=== PATIENT | male | born 2000 | race Caucasian/White ===

== ENCOUNTER 2018-08-13 12:30 | Outpatient (RCR) | payer OTHER, SELFPAY ==
--- NOTE | 2018-06-17 18:11 | HP.PTEVAL ---
Patient's Visit Information MADHAVI ECHAVARRIA is a 17 year old M referred to Physical Therapy by Roel Hernandez with a diagnosis of Back Pain.. Date of Evaluation: 06/17/18 Physical Therapist: Dom Patel, MEEKT, OC - Visit Plan Frequency: 2x /Week Duration: 4-6 Weeks Plan: 2x/week for 3-6 weeks. 1. [place] based ext adn L/S mobs. 2. Needs aggressive ROM to LB in rotations and flexion as well as aggressive HS, hip flexor and quad stretches progressing all to HEP. 3. core strength and progression of activity/piosture adn body mechanics. 4. ES and ice if needed. - Subjective Subjective: LBP brings him here. Had it since March 12 started on the toilet sitting in the morning with pushing. Been fairly constant since then. Had another spasm on Saturday sitting and reaching R. Always some feeling there. Worse with bending. Sitting too long makes it hurt worse. carrying backpack hurts. Worse in the evening. Student at [employer] sitting alot of day. Not employed. Able to do Basic ADLs but anything bending takes thought and not easy. Hobbies include golf but has not polayed since this started. No leg symptoms or numbness or tingling, confined to back. - Pain LBP Pain Intensity (Out of 10): 2 Pain Intensity Range: 1, 8 Comment: R side> L - Objective Walks tall and I. trasnfers slow and hesitant but I. Flat lordosis in L/S, very stiff LB and HS max tight at -45 90/90, hip flexors tight with + earle test. Quads mod tight. L/S ext max limited, flexion slow and mod limited, SB mod limited B. No excessive pain just slightly centrally at end of extension. Pulling felt with flexion. reflexes 2/3 patella adn achilles. Sensation LE WNl tto gross light touch. Strength LE 4/5 without pain. - slump and - SLR tests. [place] + R compression. Repeated PPU seems to increase ROM and no change to pain. - Goals Goal 1:: Full L/S AROM without increased pain or hesitancy Goal Time Frame: 4-6 Weeks Goal 2:: Patient feel 90% back to normal with 1/10 at worst pain in LB Goal Time Frame: 4-6 Weeks Goal 3:: Patient back to running and feels like he could golf. Goal Time Frame: 4-6 Weeks Goal 4:: I apporp HEP for minimize future problems. Goal Time Frame: 4-6 Weeks - Rehabilitation Potential Physical Therapy Diagnosis: LBP likely discal in nature. Rehabilitation Potential: Good - Anticipated Interventions Patient/Client Instruction: Educate patient on: Condition, Plan of Care For the Purpose of:: To decrease pain, To increase ROM, To increase tolerance to activity/condition/position Therapeutic Exercise to Include: Strength training, Flexibilty training, Passive ROM, Active ROM, Dynamic Lumbar Stabilization, Shel[place] Exercises For the Purpose of:: To decrease pain, To increase ROM, To increase tolerance to activity/condition/position, To improve ability of physical actions for home/community/work/leisure Manual Therapy Techniques to Include: Mobilization, Passive ROM For the Purpose of:: To decrease pain, To increase ROM TENS: Yes Cryotherapy (ice pack, ice massage): Yes Thermo therapy (hot pack): Yes For the Purpose of:: To decrease pain Thank you for the opportunity to evaluate your patient. For Medicare and Medicare HMO plans, please review the plan of care and approve it. It will need to be FAXED BACK to us at [phone] for Medicare purposes. Please let me know if there are questions or concerns regarding this plan of care. Physician Signature: Date:
--- NOTE | 2018-08-13 12:59 | HP.PTDCSUM ---
HP - PT D/C Summary It has been my pleasure to treat MADHAVI ECHAVARRIA under orders from Roel Hernandez MD, for the diagnosis of Back Pain. for a total of 8 visit(s). Discharge Date: 08/13/18 Please see the following information for a summary of their discharge status. - Subjective Subjective: Did OK. Hard to get ex in over the holidays. [place] worse over the holidays. Has some improvements sitting. Pain daily to 1/10, bad days 3/10.Hard to find a pattern but ex days are better. Can sit longer now. After an hour he is not as painful as a month ago. - Pain LBP Pain Intensity (Out of 10): 0 - Overall Improvement % Improvement: 60 - Objective Objective/Function: ROM L/S still stiff in lower two segments of flexiona dn extension. HS still very tight but he is working on these at home. Has not been strengthening in the gym due to being off of school. OVERALL PROGRESS IS SLOWER THAN I WOULD LIKE. Recommend return to doctor to see if there is other steps appropriate at this point. Could still see patient if found appropriate by physician for lower lumbar ROM and mobs - Goals Goal 1:: Full L/S AROM without increased pain or hesitancy Goal Progress: Progressing Goal 2:: Patient feel 90% back to normal with 1/10 at worst pain in LB Goal Progress: Progressing Goal 3:: Patient back to running and feels like he could golf. Goal Progress: Progressing Goal 4:: I apporp HEP for minimize future problems. Goal Progress: Goal Met - Plan Plan: Pt to contact doctor regarding next medical step(MRI, ortho, etc) then will call after doctor visit. - D/C Information Discharge Comments: Progress is slower than expected for 17 year old. Recommend to doctor for next medical step but referral back is appropriate if other options are exhausted. If there are questions or concerns regarding this patient's physical therapy, please feel free to call me at [phone]. Thank you for the referral of this patient. Sincerely, Dom Patel, DPT, OCS, CSCS
== END 2018-08-13 19:00 | disposition home or self-care (01) ==
LOC: PT 12:30
PROVIDERS: Family Provider Family Medicine; PCP Family Medicine; Referring Provider Family Medicine; Visit Provider Family Medicine
DX: M54.5 Low back pain (principal)
CPT/HCPCS: 97110; 97140; 97162; 97530

== ENCOUNTER 2019-11-09 00:17 | Observation (INO) | payer OTHER, SELFPAY ==
[2019-11-09 00:18] VITALS: BP 133/80; PULSE 69; RESP 18; TEMP 36.2; O2SAT 100; BMI 17.5
--- NOTE | 2019-11-09 01:57 | ED.DCSUM_ITS ---
- ER Visit Summary Date of Service: 11/09/19 Chief Complaint: Right arm swelling History of Present Illness: The patient is a [address] Hernandez. He reports that 1 week ago he was tearing down a barn with a sledgehammer. This took approximately 1 hour. He reports that he was sore after. He states that he has swelling of his right arm and forearm that began 4 days ago. He states that his pain is much improved. Is an aching pain is 2 out of 10 severity currently and at worst. Is worsened by movement relieved by rest. He denies any numbness or weakness. He is left-hand dominant. Physical Examination: Vitals: Stable. Afebrile. General: Well-nourished and well-developed. Head: Normocephalic atraumatic. Neck: Supple, no lymphadenopathy. No JVD. Nontender. Cardiovascular: Regular rate and rhythm. No murmurs. Respiratory: No respiratory distress. Clear to auscultation bilaterally. Abdominal: Soft, nontender, nondistended, normal bowel sounds. No guarding, rebound, or peritoneal signs. Back: Nontender. Extremities: Mild diffuse tenderness outpatient over his left forearm both anteriorly and posteriorly. He has 2+ edema. He has full range of motion of his shoulder, elbow, and wrist without difficulty. He has no pain with passive range of motion of his elbow or wrist. He has 2+ radial pulse bilaterally. Skin: Normal color, no rash. Neurologic: Alert and oriented ?3. Cranial nerves II through XII are intact. Normal strength and sensation. Psych: Normal affect. Test Results: Patient refused x-rays. CPK is 50,185. CBC shows segmented neutrophils of 71. Chem-7 shows a BUN of 19. Emergency Department Course and Treatment: Patient refused pain medications. He is resting comfortably. Patient has no signs of compartment syndrome. He was given a liter of normal saline IV. Treatment Plan: Patient CPK is very elevated. His swelling began just tonight. I do not think he has compartment syndrome. However I do think he would benefit from admission to trend his CPK to make sure that this is improving rather worsening. He was discussed with Dr. Olivera. Disposition: Admitted in stable condition. Impression: 1. Right arm swelling. 2. Rhabdomyolysis. This note was generated with [employer] software. It may contain incorrect words, spelling, and punctuation that were not noted in review of the chart prior to signing ED Disposition - Plan for ED Patient: Referrals: Roel Hernandez MD [Primary Care Provider] -
[2019-11-09] MEDS: 0.9% Normal Saline 1,000 ML 1000 ML IV (02:39)
[2019-11-09 02:51] LABS: Anion Gap 8 (5-15); BUN 19 mg/dL (7-18); BUN/Creat Ratio 17.9 RATIO (10-20); Chloride 105 mmol/L (98-107); Creatinine, Serum 1.06 mg/dL (0.70-1.30); EST Glomerular Filtration Rate 94 mL/min (>60); Est Glom Filt Rate - Afr Amer 113 mL/min (>60); Estimated Creatinine Clearance 96.67 ml/min; Glucose 95 mg/dL (74-106); Potassium 3.8 mmol/L (3.5-5.1); Sodium Level 140 mmol/L (136-145)
[2019-11-09 02:52] LABS: Absolute Lymphocyte Count 1.22 X10^3/uL (0.83-4.51); Absolute Neutrophil Count 4.2 X10^3/uL (2.0-7.7); Basophil# 0.01 X10^3/uL; Basophil% 0.2 % (0-1); Eosinophil# 0.08 X10^3/uL; Eosinophils% 1.4 % (0-5); Hematocrit 45.4 % (40-54); Hemoglobin 15.7 g/dL (13.0-16.5); Lymphocyte # 1.22 X10^3/ul (4.0); Lymphocyte % 20.9 % (19-41); Mean Corp Hgb Conc 34.6 g/dL (32-36); Mean Corpuscular Hgb 30.8 pg (27.0-32.0); Mean Platelet Vol. 10.3 fl (6.2-12.0); Monocyte# 0.34 X10^3/uL; Monocyte% 5.8 % (0-10); NRBC Flagged by Analyzer 0 % (0-5); Neutrophil # 4.16 X10^3/uL (2.7-7.7); Neutrophil % 71.4 % (47-70); Platelet Count 157 K/mm3 (150-450); RBC Distribution Width SD 39.3 fl (35.1-43.9); White Blood Count 5.8 K/mm3 (4.4-11.0)
[2019-11-09 03:40] VITALS: BP 118/70; PULSE 70; RESP 18; TEMP 36.5; O2SAT 98
[2019-11-09 03:40] LABS: Bacteria 0 SEEN /hpf (None Seen); Mucous, Urine 0 SEEN /hpf (<or=2+); Red Blood Cells-Urine 0 SEEN /hpf (0-5); Squamous Epithelial Cells - UA 0 SEEN /hpf (0-5); White Blood Cells 0 SEEN /hpf (0-5)
[2019-11-09 03:41] LABS: Glucose, Dipstick Normal (Normal); Ketone-Dipstick Negative (Negative); Leukocyte Esterase-Dipstick Negative /ul (Negative); Nitrite-Dipstick Negative (Negative); Occult Blood-Urine Negative /ul (Negative); Protein-Dipstick Negative (Negative); Specific Gravity, Urine 1.005 (1.002-1.030); Urine Bilirubin Dipstick Negative (Negative); Urine Urobilinogen Normal (Normal)
[2019-11-09 03:42] LABS: Color, Urine Yellow (Yellow); Urine Clarity Clear (Clear)
[2019-11-09 04:05] VITALS: BP 119/86; PULSE 64; RESP 16; TEMP 36.7; O2SAT 99
[2019-11-09 04:08] VITALS: BMI 17.4; BMI 17.5
--- NOTE | 2019-11-09 04:39 | HP.PCM_ITS ---
Problem List (1) Exertional rhabdomyolysis Status: Acute History of Present Illness Date of Admission: 11/09/19 Chief Complaint: Right arm swelling for 4 days The patient is a 19 year old M with no past medical history came to ER with progressive worsening of right upper extremity swelling started about 4 days ago prior to admission. Patient used a sledgehammer for tearing down a barn about a week ago. Is right arm was sore and painful but has improved, complaining of 2 out of 10 severity, aching type pain. Patient denies numbness, tingling, paresthesia, weakness or loss of movement but right arm and shoulder movement is painful. Patient is left-hand dominant. In ED, labs were done which shows CK 50,285. BUN 19, creatinine 1.06. Bicarb 27, anion gap 8. Rest of the labs normal. UA is negative with no proteinuria, 0 RBC and WBC and occult blood. [] Patient does not want x-ray of right upper extremity but wants to defer if upper extremity swelling gets worse Past Medical History Allergies No Known Allergies Allergy (Verified 11/09/19 00:20) Home Medications: Ambulatory Orders Medication Instructions Recorded NK 11/09/19 Surgical History: no surgical history Psychiatric History: No pertinent psych hx Smoking Status: Never smoker - *Family History Maternal History Items: No pertinent history Paternal History Items: Heart Disease Review of Systems Constitutional: Denies: Chills, Fever, Weight Change HEENT: Denies: Head Aches, Sinus Congestion, Sinus Drainage Cardiovascular: Denies: Chest Pain, Palpitations Respiratory: Denies: Cough, Shortness of breath at rest, Sputum production Gastrointestinal: Denies: Abdominal Pain, Nausea, Vomiting Genitourinary: Denies: Dysuria Musculoskeletal: Reports: Arm Pain, Hand Pain, Muscle pain, Shoulder Pain - Right. Denies: Joint Pain, Joint Tenderness Skin: Denies: Rash, Wounds Neurological: Denies: Numbness, Tingling, Focal weakness Psychiatric: Denies: Anxiety, Depression, Homicidal Ideations, Suicidal Ideations Hematologic/ Lymphatic: Denies: Easy Bruising, Easy Bleeding VTE Information - Inpt Only VTE Present on Admission: No VTE Mechan Device Prophylaxis: None VTE Pharm Prophylaxis ordered?: No Reason prophylaxis not ordered:: Procedure Not Indicated Patient Problems: Active and Suspected Problems Exertional rhabdomyolysis (Acute) - Physical Exam Vitals/I&O's: Vital Signs Temp Pulse Resp BP Pulse Ox 98.0 F 64 16 119/86 H 99 11/09/19 04:05 11/09/19 04:05 11/09/19 04:05 11/09/19 04:05 11/09/19 04:05 Oxygen Delivery Method Room Air Weight: 135 lb 5.821 oz Body Mass Index (BMI) 17.4 Intake and Output for Last 24 Hours 11/07/19 11/08/19 11/09/19 23:59 23:59 23:59 Intake Total 1000 / 1000 Balance 1000 / 1000 General: Alert, Oriented x3, Cooperative HEENT: Atraumatic, PERRLA, EOMI, Normocephalic Oral: Moist Mucosa, No Gingival or Mucosal Lesions/ Ulcerations Neck: Supple, No JVD, Negative Carotid Bruits Lungs: Clear to auscultation, Normal air movement, No rhonchi, No wheeze, No rales Cardiovascular: Regular rate, Regular Rhythm, Normal S1, Normal S2, No murmurs Abdomen: Bowel Sounds Present, Soft, Non Tender, Non-Distended Extremities: No edema, Capillary Refill Less than 3 Seconds, Edema - Edema of right upper extremity mainly soft tissue swelling., Peripheral Pulses Normal Skin: No rashes, No breakdown Musculoskeletal: No Tenderness to Palpation of Joints or Extremities, Tenderness - Mild tenderness of right arm and forearm muscles. Generalized soft tissue swelling of right upper extremity from shoulder downward to hand. Patient can make a closed fist. Right radial and ulnar artery normal. Capillary refill is good. No paresthesia. Neurological: Cranial nerves II-XII grossly intact, Deep Tendon Reflexes 2+/4 and Symmetrical, Neuro grossly intact, Motor Exam 5/5 strength throughout Psych/Mental Status: Normal Affect, Appropriate Laboratory Results 11/09/19 00:50: Total Creatine Kinase 88031 H 11/09/19 00:50: Sodium 140, Potassium 3.8, Chloride 105, Carbon Dioxide 27.0, Anion Gap 8, BUN 19 H, Creatinine 1.06, Estim Creat Clear Calc 96.67, Est GFR (MDRD) Af Amer 113, Est GFR (MDRD) Non-Af 94, BUN/Creatinine Ratio 17.9, Glucose 95, Calcium 9.0 11/09/19 02:45: WBC 5.8, RBC 5.10, Hgb 15.7, Hct 45.4, MCV 89.0, MCH 30.8, MCHC 34.6, RDW Std Deviation 39.3, RDW Coeff of Emmy 12.0, Plt Count 157, MPV 10.3, Immature Gran % (Auto) 0.300, Neut % (Auto) 71.4 H, Lymph % (Auto) 20.9, [place] % (Auto) 5.8, Eos % (Auto) 1.4, Baso % (Auto) 0.2, Absolute Neuts (auto) 4.2, Absolute Lymphs (auto) 1.22, Nucleated RBC % 0 11/09/19 03:30: Urine Color Yellow, Urine Clarity Clear, Urine pH 7.0, Ur Specific [place] 1.005, Urine Protein Negative, Urine Glucose (UA) Normal, Urine Ketones Negative, Urine Occult Blood Negative, Urine Nitrite Negative, Urine Bilirubin Negative, Urine Urobilinogen Normal, Ur Leukocyte Esterase Negative, Urine RBC 0 SEEN, Urine WBC 0 SEEN, Ur Squamous Epith Cells 0 SEEN, Urine Bacteria 0 SEEN, Urine Mucus 0 SEEN Current Medications Sodium Chloride () 250 mls @ 15 mls/hr IV .[id number] PRN PRN Reason: Saline Flush Sodium Chloride () 250 mls @ 15 mls/hr IV .[id number] PRN PRN Reason: Additional IVPB Infusion Sodium Chloride () 10 - 40 ml IV UD PRN PRN Reason: SALINE FLUSH Assessment/Plan All Active Problems Exertional rhabdomyolysis (Acute) Appendicitis (Acute) The patient is a 19 year old M with no past medical history came to ER with progressive worsening of right upper extremity swelling started about 4 days ago prior to admission, along with mild pain, CK 57 2085 consistent with acute rhabdomyolysis. 1. Acute exertional severe rhabdomyolysis: Patient is being admitted on [facility] floor. IV fluid normal saline at 150 mill per hour. Monitor intake and output, electrolytes, kidney function, CK level daily. If right upper extremity swelling gets worse will need further imaging. Currently neurovascular bundle is intact. Expected natural history and outcome explained to the patient. 2. Mild prerenal azotemia secondary to dehydration: IV fluid as mentioned above. 3. DVT prophylaxis, low risk. No prophylaxis indicated. Early ambulation encouraged. OBSV E&M: 97665 Initial observation care L2
[2019-11-09] MEDS: 0.9% Normal Saline 1,000 ML 150 ML IV ×3 (05:04→18:11)
[2019-11-09 05:33] LABS: Magnesium 1.9 mg/dL (1.6-2.6)
[2019-11-09 07:35] VITALS: O2SAT 98
[2019-11-09 08:36] VITALS: BP 106/64; PULSE 80; RESP 16; TEMP 36.7; O2SAT 97
[2019-11-09 12:51] LABS: CPK Total, Creatine Kinase 10941 U/L (39-308)
--- NOTE | 2019-11-09 13:17 | PCM.HOSP.N ---
Hospitalist Note Patient noted swelling in his left upper extremity as well as his right upper extremity. Swelling is right upper extremity has not changed at all. Patient not noted any change in appearance such as mottling or duskiness in his right hand. Denies any paresthesias. Though he does state that he did have paresthesias earlier. Physical exam: Patient no acute distress and afebrile. Seen earlier up and ambulating without any acute distress. Sensation is intact. Pulses are radial and ulnar intact. Does have some swelling right upper extremity subtly in the left upper extremity. Assessment and plan 1. Rhabdomyolysis: CPK is gone from 50,000 to now 10,000. No concern for compartment syndrome at this time. Plan is to continue with IV fluids and CPKs are improved the , anticipate the patient being discharged. I feel that the acute rhabdomyolysis is due to the patient doing excess amounts of lifting and cutting down a tree. Procedures: Other Procedure - See Report - nonbillable rounding.
[2019-11-09 20:10] VITALS: BP 105/59; PULSE 84; RESP 18; TEMP 37.1; O2SAT 97
[2019-11-10] MEDS: 0.9% Normal Saline 1,000 ML 150 ML IV ×2 (00:54→07:36)
[2019-11-10 02:05] VITALS: BP 121/48; PULSE 87; RESP 18; TEMP 36.8; O2SAT 98
[2019-11-10 07:10] LABS: Anion Gap 5 (5-15); BUN 10 mg/dL (7-18); BUN/Creat Ratio 14.3 RATIO (10-20); CPK Total, Creatine Kinase 4824 U/L (39-308); Calcium,Total 8.4 mg/dL (8.5-10.1); Chloride 113 mmol/L (98-107); EST Glomerular Filtration Rate 152 mL/min (>60); Est Glom Filt Rate - Afr Amer 184 mL/min (>60); Estimated Creatinine Clearance 144.97 ml/min; Glucose 86 mg/dL (74-106); Potassium 4.4 mmol/L (3.5-5.1); Sodium Level 144 mmol/L (136-145)
[2019-11-10 07:12] VITALS: O2SAT 96
--- NOTE | 2019-11-10 07:52 | DCINST_ITS ---
- Discharge Diagnoses Current Active Problems: Current Active and Chronic Problems Exertional rhabdomyolysis (Acute) You will use the following diet at home:: No restrictions - drink plenty of fluids over the next 48 hours. Discharge Activity: Return to Normal Activity, - - no upper body work outs for the next 2 weeks. Don't lift anything heavier thant 20 pounds over the next 2 weeks. While you have swelling in your arms, keep them elevated when you are not up and about. Call your doctor if you observe: - - increased pain and swelling in arms and hands. discoloration (dusky, blue of fingers) Allergies/Adverse Reactions: Allergies No Known Allergies Allergy (Verified 11/09/19 00:20) Medications to take at Discharge Acetaminophen [Tylenol Tablet] 650 mg PO Q6H PRN PRN tab 11/10/19 Primary Care Physician: Roel Hernandez MD [Primary Care Provider] - Within 2 Weeks Please follow up with your Primary Care Physician in: may need to do telehealth visit given the pandemic. Test Results: Test results from this visit will be discussed in further detail at your follow- up appointment, if applicable. Proposed Discharge Date: 11/10/19
--- NOTE | 2019-11-10 07:55 | PCM.DC.SUM ---
Discharge Date and Diagnosis - Problem List Patient Problems: Active and Suspected Problems Exertional rhabdomyolysis (Acute) Date of Admission: 11/09/19 Date of Discharge: 11/10/19 - Primary Discharge Diagnosis Active and Suspected Problems Exertional rhabdomyolysis (Acute) Hospital Course and Treatment Operations: appendectomy Procedures: None Summary of Care Provided: The patient is a 19 year old M presents with a four-day history of a swelling in his right upper extremity. Patient had been doing a lot of work, involving using a sledgehammer to tear down a barn, tripped on a tree. Pain is swelling just got worse. Presented to the emergency room and was found to have acute rhabdomyolysis with a CPK level of 50,000. Patient was started on IV fluids and monitored. Subsequent CPK went down to 10,000 and then today down to 4800. Patient still has swelling but he is neurovascularly intact. Patient will be discharged today. He is instructed to drink plenty fluids for the next 24 hours and to avoid any kind of upper body workout for the next couple weeks and patient encouraged to be active and walk but I advised him against running case he were to fall that may cause him to catch himself with his arms with given the current situation would not be advised. Patient started to return if he has increased swelling and pain in his upper extremities, discoloration of his fingers. Feet turn dusky or blue. But overall patient is doing well and is stable medically to be discharged home. [] Patient Problems: Active and Suspected Problems Exertional rhabdomyolysis (Acute) - Physical Exam Vitals/I&O's: Vital Signs Temp Pulse Resp BP Pulse Ox 36.8 C 87 18 121/48 H 96 11/10/19 02:05 11/10/19 02:05 11/10/19 02:05 11/10/19 02:05 11/10/19 07:12 Oxygen Delivery Method Room Air Weight: 61.4 kg Body Mass Index (BMI) 17.4 Intake and Output for Last 24 Hours 11/08/19 11/09/19 11/10/19 23:59 23:59 23:59 Intake Total 7447.5 / 7447.5 3300 / 3300 Output Total 1350 / 1350 2900 / 2900 Balance 6097.5 / 6097.5 400 / 400 General: Alert, No apparent distress HEENT: Atraumatic, Normocephalic Oral: Moist Mucosa, No Gingival or Mucosal Lesions/ Ulcerations Extremities: Peripheral Pulses Normal, - - Edema of the right upper extremity, but not taut. Neurological: Sensory exam intact to light touch and pain - In the right hand and left hand Psych/Mental Status: Normal Affect, Appropriate Laboratory Results 11/09/19 05:15: Total Creatine Kinase Cancelled 11/09/19 11:15: Total Creatine Kinase 62954 H 11/10/19 06:13: Sodium 144, Potassium 4.4, Chloride 113 H, Carbon Dioxide 26.0, Anion Gap 5, BUN 10, Creatinine 0.70, Estim Creat Clear Calc 144.97, Est GFR (MDRD) Af Amer 184, Est GFR (MDRD) Non-Af 152, BUN/Creatinine Ratio 14.3, Glucose 86, Calcium 8.4 L, Total Creatine Kinase 4824 H Current Medications Acetaminophen (Tylenol) 650 mg PO Q6H PRN PRN PRN Reason: Pain Score 1-10/Temp > 100.7 F Al Hydroxide/Mg Hydroxide (Mylanta Ii) 30 ml PO Q6H PRN PRN PRN Reason: Gastric Burning Albuterol Sulfate (Ventolin Aerosols) 2.5 mg INHALATION Q2H PRN PRN PRN Reason: Shortness of Breath/Wheezing Dextrose (D50w Syringe) 0 gm IV X1 PRN; Protocol PRN Reason: Hypoglycemia Glucagon () 1 mg IM .X1 PRN PRN Reason: Hypoglycemia Sodium Chloride () 250 mls @ 15 mls/hr IV .[id number] PRN PRN Reason: Saline Flush Sodium Chloride () 1,000 mls @ 150 mls/hr IV .[id number] ROMEO Last Admin: 11/10/19 07:36 Dose: 150 mls/hr Documented by: Morphine Sulfate () 2 mg IV Q3H PRN PRN PRN Reason: Pain Score 6-10/10 Nitroglycerin (Nitrostat) 0.4 mg SUBLINGUAL Q5M PRN PRN Reason: CARDIAC/CHEST PAIN Ondansetron HCl (Zofran) 4 mg IV Q8H PRN PRN PRN Reason: NAUSEA/VOMITING Oxycodone HCl (Oxyir) 5 mg PO Q4H PRN PRN PRN Reason: Pain Score 4-5/10 Senna/Docusate Sodium (Senokot-S, Tanya-Colace) 2 tablet PO BID PRN PRN PRN Reason: Constipation Sodium Chloride () 10 - 40 ml IV UD PRN PRN Reason: SALINE FLUSH Discharge Diet: No Restrictions Discharge Activity: Return to Normal Activity, - - no upper body work outs for the next 2 weeks. Don't lift anything heavier thant 20 pounds over the next 2 weeks. While you have swelling in your arms, keep them elevated when you are not up and about. Call your doctor if you observe: - - increased pain and swelling in arms and hands. discoloration (dusky, blue of fingers) Home Medications: Medications to take at Discharge Acetaminophen [Tylenol Tablet] 650 mg PO Q6H PRN PRN tab 11/10/19 Primary Care Physician: Roel Hernandez MD [Primary Care Provider] - Within 2 Weeks Please follow up with your Primary Care Physician in: may need to do telehealth visit given the pandemic. Disposition: Home Minutes spent on discharge:: 32 Patient Condition:: Good Medical Necessity - Tobacco Use Smoking Status: Never smoker Meaningful Use Info Meaningful Use Diagnoses (Choose all that apply): None applicable OBSV E&M: 04263 Observation care discharge
[2019-11-10 08:05] VITALS: BP 100/50; PULSE 86; RESP 16; TEMP 36.5; O2SAT 98
== END 2019-11-10 08:34 | disposition home or self-care (01) ==
LOC: ED 00:56 → PCU 04:45
PROVIDERS: Admitting Provider Internal Medicine; Emergency Provider Emergency Medicine; PCP Family Medicine; Referring Provider Internal Medicine
DX: T79.6XXA Traumatic ischemia of muscle, initial encounter (principal); X50.9XXA Other and unspecified overexertion or strenuous movements or postures, initial encounter; E86.0 Dehydration
CPT/HCPCS: 36415; 80048; 81001; 82550; 83735; 84100; 85025; 96360; 96361; 97110; 99218; 99283; J7030; A4216; G0378

== ENCOUNTER 2020-04-15 11:00 | Emergency (ER) | payer OTHER, SELFPAY ==
[2019-11-09 04:08] VITALS: BMI 17.4
[2020-04-15 11:01] VITALS: BP 119/67; PULSE 70; RESP 17; TEMP 36.4; O2SAT 99; BMI 17.2
--- NOTE | 2020-04-15 11:21 | ED.VIS.UPPEX ---
History of Present Illness Informant: Patient, Family Occurred: Today Mechanism/Context: Incised Onset: Today Context: Sudden Onset Timing: Continuous Quality of Pain: Throbbing Location: Left middle finger Current Severity: Moderate Maximum Severity: Moderate Worsened by: Movement Relieved by: Dressing Associated Symptoms: Negative for: Parasthesia, Weakness, Loss of Funtion Narrative: 19-year-old male [id number] presents with a laceration to his left middle finger that occurred just prior to arrival on a mandolin. He states he has a small avulsion. Bleeding was unable to be controlled with pressure at home. He is not on blood thinners. No weakness or paresthesias. Tetanus is up-to-date. He denies any other injuries. Tetanus Immunization: <5 years Prior similar symptoms: No Recent Illness/Hospitalization: No <Terrance Albert - Last Filed: 04/15/20 11:29> <Dom Barajas - Last Filed: 04/15/20 11:41> Chief Complaint: Laceration Past Medical History Prior records reviewed: Yes Past Medical History: None Surgical History: no surgical history Lives: With Family Smoking Status: Never smoker Alcohol: None Drugs: None - Family History Paternal Family History: Reports: Heart Disease Maternal Family History: Reports: No pertinent history <Terrance Albert - Last Filed: 04/15/20 11:29> <Dom Barajas - Last Filed: 04/15/20 11:41> - Allergies and Home Meds Allergies/Adverse Reactions: Allergies No Known Allergies Allergy (Verified 04/15/20 11:01) Primary Care Physician: Roel Hernandez MD [Primary Care Provider] - 3-5 Days Review of Systems All systems negative except as indicated General: Denies: Chills, Fever, Sweats Eyes: Denies: Visual changes - bilaterally, Diplopia ENT: Denies: Rhinorrhea, Sore throat Cardiovascular: Denies: Chest pain, Palpitations Respiratory: Denies: Dyspnea, Cough, Dyspnea on exertion Gastrointestinal: Denies: Abdominal pain, Nausea, Vomiting, Diarrhea, Melena, Hematochezia Genitourinary: Denies: Dysuria, Hematuria, Frequency Musculoskeletal: Denies: Back pain, Extremity Pain Skin: Reports: Wounds. Denies: Rash, Abscess, Abrasions Neurological: Denies: Headache, Weakness, Numbness <Terrance Albert - Last Filed: 04/15/20 11:29> Physical Exam Vital Signs/Narrative: Vital Signs Temp Pulse Resp BP Pulse Ox 04/15/20 11:01 97.5 F L 70 17 119/67 99 Inital Vital Signs reviewed: Yes Left Finger: - - Avulsion finger pad left middle finger mild active bleeding it is superficial without nail involvement he has normal sensation throughout his finger he has normal capillary refill he has normal flexion extension actively at his MCP PIP and DIP joint. General: Well nourished, Well developed Head: Normocephalic, Atraumatic Eyes: Perrl, EOMI ENT: No Trauma, Moist Mucous Membranes Neck: Nontender, Full ROM Cardiovascular: Regular rate, Regular rhythm, No murmurs Respiratory: No distress, CTA bilaterally, Chest nontender Abdomen: Soft, Nontender, Nondistended, Normal bowel sounds Back: Nontender Skin: Normal color, No rash Neurological: Alert, Oriented x3, Cranial nerves II-XII grossly intact, Normal Strength, Normal Sensation Psychological: Normal affect <Terrance Albert - Last Filed: 04/15/20 11:29> Vital Signs/Narrative: Vital Signs Temp Pulse Resp BP Pulse Ox 04/15/20 11:01 97.5 F L 70 17 119/67 99 <Dom Barajas - Last Filed: 04/15/20 11:41> Diagnostic/Tx/Re-eval - Medical Decision Making Patient has a small avulsion but no laceration nothing amenable to suture repair, his tetanus is already up-to-date, Gelfoam and dressing applied with resolution of bleeding. Discussed with patient and mom proper wound care given signs of infection to monitor for advised to day follow-up with primary care or return to the emergency department <Terrance Albert - Last Filed: 04/15/20 11:29> - Medical Decision Making Patient was seen with me. I did a [id number] examination with the patient. Patient presents with laceration to his left middle finger that occurred today. Patient was using a mandolin vegetable slicer and cut the tip of his finger. Patient states the bleeding has been persistent. Patient denies any paresthesias or weakness. Patient states his tetanus is up-to-date. Vital signs are stable. Patient is afebrile. Patient is in no acute distress. Skin is warm and dry. There is a 1 cm diameter avulsion laceration over the tip of the left middle finger. There is moderate bleeding. There are no foreign bodies noted. Sensation was intact light touch in all digits. Capillary refill was less than 2 seconds in all digits. There is good range of motion in all digits. Patient and his mother were advised this is not amenable to suture repair. Gelfoam dressing was applied. Patient was instructed to keep the finger elevated. Patient was instructed to follow-up with his primary care physician in 5 to 7 days. Patient and his mother understood and were agreeable with the plan. All questions were answered. <Dom Barajas - Last Filed: 04/15/20 11:41> ED Disposition <Terrance Albert - Last Filed: 04/15/20 11:29> <Dom Barajas - Last Filed: 04/15/20 11:41> - Plan for ED Patient: Disposition: Home or Assisted Living Diagnosis: Avulsion of skin of finger without complication Instructions: ED AVULSION LACERATION Referrals: Roel Hernandez MD [Primary Care Provider] - 3-5 Days
[2020-04-15] MEDS: Gelfoam 12-7 MM Sponge (1) 1 EACH TP (11:37)
== END 2020-04-15 11:47 | disposition home or self-care (01) ==
PROVIDERS: Emergency Provider Physician Assistant Medical; PCP Family Medicine
DX: S61.213A Laceration without foreign body of left middle finger without damage to nail, initial encounter (principal); X58.XXXA Exposure to other specified factors, initial encounter
CPT/HCPCS: 99282